=== PATIENT | female | born 1970 | race Caucasian/White ===

== ENCOUNTER 2019-12-18 15:05 | Emergency (ER) | payer BC, OTHER ==
[~2019-12-18] VITALS: Ht 165.1 cm; Wt 101.2 kg
[2019-12-18 15:09] VITALS: Ht 165.1 cm; Wt 101.2 kg
[2019-12-18 18:09] VITALS: BP 122/87
== END 2019-12-18 18:09 | disposition home or self-care (01) ==
LOC: ED 15:05
DX: J45.909 Unspecified asthma, uncomplicated (principal); I10 Essential (primary) hypertension; Z90.710 Acquired absence of both cervix and uterus; Z98.890 Other specified postprocedural states; Z88.2 Allergy status to sulfonamides; Z91.040 Latex allergy status; Z88.1 Allergy status to other antibiotic agents